=== PATIENT | female | born 1990 | race Caucasian/White ===

== ENCOUNTER 2022-11-29 09:09 | Inpatient (IN) | payer BC ==
[2022-11-30] MEDS ORDERED: Promethazine HCl 25 MG/ML VIAL IM PRN ×2 (03:40→06:08)
[2022-11-30] MEDS ORDERED: Lactated Ringer's 1,000 ML IV SCH (03:40)
[2022-11-30] MEDS ORDERED: NS w/ Oxytocin 30 units 500 ML IV SCH ×2 (03:40)
[2022-11-30] MEDS ORDERED: HYDROcodone/Acetaminophen 5/325 mg Tablet PO PRN ×2 (03:40)
[2022-11-30] MEDS ORDERED: Acetaminophen 500 MG TAB PO PRN (03:40)
[2022-11-30] MEDS ORDERED: Ondansetron PF 4 MG/2 ML Vial IVP PRN ×2 (03:40→06:08)
[2022-11-30] MEDS ORDERED: Misoprostol 200 MCG TAB PR PRN (03:40)
[2022-11-30] MEDS ORDERED: Diphenoxylate HCl/Atropine Tablet PO PRN ×2 (03:40)
[2022-11-30] MEDS ORDERED: Ibuprofen 800 MG TAB PO PRN (03:40)
[2022-11-30] MEDS ORDERED: Carboprost 250 MCG/ML AMP IM PRN (03:40)
[2022-11-30] MEDS ORDERED: hydrALAZINE 20 MG/ML VIAL SLOW IVP PRN ×2 (03:40→06:54)
[2022-11-30] MEDS ORDERED: Butorphanol Tartrate 1 MG/ML VIAL SLOW IVP PRN (03:40)
[2022-11-30] MEDS ORDERED: Lidocaine 1% (PF) 30 ML VIAL SC PRN (03:40)
[2022-11-30 03:46] VITALS: BMI 35.2
[2022-11-30] MEDS ORDERED: Fentanyl 2 mcg/Bup 0.1% Cadd 100 ML ONE (04:30)
[2022-11-30 04:41] LABS: Hemoglobin 11.8 g/dL (12.0-15.5); Mean Corpuscular HGB CONC 33.7 g/dL (32.0-36.0); Mean Corpuscular Hemoglobin 26.5 pg (27.0-33.0); Mean Corpuscular Volume 78.7 fl (81.6-98.3); Mean Platelet Volume 11.5 fl (7.4-10.4); Platelet Count 184 10x3/uL (150-450); RBC Distribution Width 13.7 % (11.5-14.5); Red Blood Cell (RBC) Count 4.45 10x6/uL (3.90-5.03); White Blood Cell (WBC) Count 8.9 10x3/uL (3.5-10.5)
[2022-11-30 04:44] LABS: HBSAg Index 0.27 S/CO (0-0.99); Hep B Surf Ag - L&D Non-Reactive S/CO (NonReactive)
[2022-11-30 04:46] LABS: Syphilis Antibody Nonreactive (Nonreactive); Syphilis Antibody Index 0.13 S/CO (<1.00 Non-Reactive)
[2022-11-30] MEDS ORDERED: ePHEDrine Sulfate 50 MG/10 ML VIAL SLOW IVP PRN (06:08)
[2022-11-30] MEDS ORDERED: Naloxone HCl 0.4 mg/ml Vial IVP PRN ×2 (06:08)
[2022-11-30] MEDS ORDERED: Acetaminophen 325 MG TAB PO PRN (06:08)
[2022-11-30] MEDS ORDERED: Moisturizing Cream (Eucerin) 113 GM JAR TOP PRN (06:08)
[2022-11-30] MEDS ORDERED: Lactated Ringer's 500 ML IV PRN (06:08)
[2022-11-30] MEDS ORDERED: diphenhydrAMINE 50 MG/ML VIAL IVP PRN (06:08)
[2022-11-30] MEDS ORDERED: Fentanyl 2 mcg/Bupivacaine 0.1% Cassette 100 ML EPIDURAL SCH (06:15)
[2022-11-30] MEDS ORDERED: [UNRECOGNIZED DRUG - REMARK] FS PRN (06:15)
[2022-11-30] MEDS ORDERED: Benzocaine-Menthol 82.5 ML CAN TOP PRN (06:54)
[2022-11-30] MEDS ORDERED: Lanolin Ointment 7 GM TUBE TOP PRN (06:54)
[2022-11-30] MEDS ORDERED: Milk Of Magnesia 30 ML UDCUP PO PRN (06:54)
[2022-11-30] MEDS ORDERED: traMADol HCl 50 MG TAB PO PRN (06:54)
[2022-11-30] MEDS ORDERED: diphenhydrAMINE 25 MG CAP PO PRN (06:54)
[2022-11-30] MEDS ORDERED: Bisacodyl 10 MG SUPP PR PRN (06:54)
[2022-11-30] MEDS: Prenatal Vitamin 1 TAB PO SCH (07:46)
[2022-11-30] MEDS: Ferrous Sulfate 325 MG TAB PO SCH ×2 (07:46→21:00)
[2022-11-30] MEDS ORDERED: Boostrix 0.5 ML (Tdap) VIAL (>/=7 yrs of age) IM ONE (08:00)
[2022-11-30] MEDS ORDERED: Bupivacaine 0.25% HCL 30 ML VIAL ONE (08:00)
[2022-11-30] MEDS: Docusate 100 MG CAP PO SCH ×2 (10:53→21:04)
[2022-11-30] MEDS: Ibuprofen 800 MG TAB PO SCH ×2 (14:06→21:04)
[2022-12-01] MEDS: Ibuprofen 800 MG TAB PO SCH ×2 (06:30→14:22)
[2022-12-01 08:34] VITALS: BP 125/79; TEMP 97.5
[2022-12-01] MEDS: Prenatal Vitamin 1 TAB PO SCH (08:47)
[2022-12-01] MEDS: Docusate 100 MG CAP PO SCH (08:47)
[2022-12-01] MEDS: Ferrous Sulfate 325 MG TAB PO SCH (11:45)
== END 2022-12-01 19:45 | disposition home or self-care (01) | DRG 807 ==
LOC: CSHLD 11-30 03:15 → CSHPED 11-30 11:02
PROVIDERS: ADMIT Obstetrics & Gynecology; ATTEND Obstetrics & Gynecology
PROC: 10E0XZZ Delivery of Products of Conception, External Approach (ICD-10-PCS; principal; 2022-11-30)
PROC: 0KQM0ZZ Repair Perineum Muscle, Open Approach (ICD-10-PCS; 2022-11-30)
DX: O70.1 Second degree perineal laceration during delivery (principal); Z37.0 Single live birth; Z3A.39 39 weeks gestation of pregnancy; Z79.82 Long term (current) use of aspirin
CPT/HCPCS: 36415; 51702; 85027; 86780; 86850; 86900; 86901; 87340; J2590; S0020